=== PATIENT | male | born 2000 | race American Indian/Alaskan Native ===

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

== ENCOUNTER 2021-11-25 00:30 | Emergency (ER) | payer MEDICAID | END 2021-11-25 01:57 | disposition home or self-care (01) | LOC: DL.ED 00:30 | DX: J02.9 Acute pharyngitis, unspecified (principal); Z20.822 Contact with and (suspected) exposure to COVID-19 | CPT/HCPCS: 87081; 87430; 99283; U0002 ==